=== PATIENT | female | born 1945 | race Two or more races ===

== ENCOUNTER 2020-01-03 12:32 | Emergency (ER) | payer OTHER ==
[~2020-01-03] VITALS: Ht 165.1 cm; Wt 59.0 kg
[~2020-01-03 12:32] MED LIST: METFORMIN HCL500 MG; MOTION RELIEF25 MG PO
[2020-01-03] MEDS ORDERED: LIPITOR80 MG (13:23)
[2020-01-03] MEDS ORDERED: PRECOSE25 MG (13:23)
[2020-01-03] MEDS ORDERED: JANUMET 50-5001 EACH (13:24)
[2020-01-03] MEDS ORDERED: CETAPHIL237 ML TOP (15:17)
[2020-01-03] MEDS ORDERED: CETAPHIL473 ML TOP (15:17)
[2020-01-03] MEDS ORDERED: TRIAMCINOLONE A15 G4 TOP (15:17)
[2020-01-03] MEDS ORDERED: BETAMETHASONE D60 ML TOP (15:17)
== END 2020-01-03 15:46 | disposition home or self-care (01) ==
LOC: ER 12:32
DX: L20.89 Other atopic dermatitis (principal)